=== PATIENT | female | born 1990 | race Caucasian/White ===

== ENCOUNTER → 2016-11-08 | Outpatient (CLI) | payer SELFPAY | LOC: RAD 15:34 | PROVIDERS: ATTEND Nurse Practitioner Women's Health | DX: Z34.81 Encounter for supervision of other normal pregnancy, first trimester (principal) | CPT/HCPCS: 76801 ==

== ENCOUNTER 2017-05-06 16:30 | Outpatient (CLI) | payer MEDICAID ==
--- NOTE | 2017-05-06 17:35 | Non Stress Test Report ---
Non Stress Test Datetime Report Generated by CPN: 05/06/2017 17:34 INDICATION Indication for Study: Ordered by Provider MONITORING Monitor Explained: Monitor Explained; Test Explained; Patient Verbalized Understanding Time on Monitor: 05/06/2017 17:13 Time off Monitor: 05/06/2017 17:33 NST Duration: 20 NST INTERVENTIONS NST Interventions: PO Hydration; Reposition Patient BABY A: [id number] BABY A Movement : Present Contraction Frequency : none FHR Baseline : 135 Accelerations : 15X15 Decelerations : None Variability : Moderate 6-25bpm NST Review: Meets Criteria for Reactive NST NST Review and Verified By : V Monk RN NST Results: Reactive NST REPORT Report Trigger: Send Report
== END 2017-05-06 17:38 | disposition home or self-care (01) ==
LOC: LC 16:30
PROVIDERS: ATTEND Obstetrics & Gynecology
PROC: 4A1HXCZ Monitoring of Products of Conception, Cardiac Rate, External Approach (ICD-10-PCS; principal; 2017-05-06)
DX: Z34.93 Encounter for supervision of normal pregnancy, unspecified, third trimester (principal); Z36 Encounter for antenatal screening of mother; Z3A.37 37 weeks gestation of pregnancy
CPT/HCPCS: 59025

== ENCOUNTER 2017-05-17 19:05 | Inpatient (IN) | payer MEDICAID ==
[2017-05-17] MEDS ORDERED: MISOPROSTOL 0.2 MG TABLET ONE (19:10)
--- NOTE | 2017-05-17 19:10 | ER Document Report ---
ED GI/ - General Chief Complaint: OB Delivery/Emergent Stated Complaint: POSSIBLE LABOR Notes: Patient is a female who presents with contractions every 2 minutes. Called emergently from the [facility] and placed in bed 20 due to labor. TRAVEL OUTSIDE OF THE [place] IN LAST 30 DAYS: No - Related Data Allergies/Adverse Reactions: No Known Allergies Allergy (Verified 05/06/17 18:15) Past Medical History - General Information source: Patient - Social History Smoking Status: Unknown if Ever Smoked Family History: Reviewed & Not Pertinent - Past Medical History Cardiac Medical History: Denies: Hx Coronary Artery Disease, Hx Heart Attack, Hx Hypertension Pulmonary Medical History: Denies: Hx Asthma, Hx Bronchitis, Hx COPD, Hx Pneumonia Neurological Medical History: Denies: Hx Cerebrovascular Accident Endocrine Medical History: Denies: Hx Diabetes Mellitus Type 1, Hx Diabetes Mellitus Type 2 Musculoskeltal Medical History: Denies Hx Arthritis Psychiatric Medical History: Reports: Hx Bipolar Disorder, Hx Depression Past Surgical History: Denies: Hx Pacemaker - Immunizations Hx Diphtheria, Pertussis, Tetanus Vaccination: Yes Review of Systems - Review of Systems -: Yes ROS unobtainable due to patient's medical condition Physical Exam - Notes Notes: PHYSICAL EXAMINATION: GENERAL: Active labor. Uncomfortable. HEAD: Atraumatic, normocephalic. EYES: Pupils equal round and reactive to light, extraocular movements intact, sclera anicteric, conjunctiva are normal. ENT: nares patent, oropharynx clear without exudates. Moist mucous membranes. NECK: Normal range of motion, supple without lymphadenopathy LUNGS: Breath sounds clear to auscultation bilaterally and equal. No wheezes rales or rhonchi. HEART: Regular rate and rhythm without murmurs ABDOMEN: Gravid uterus, normoactive bowel sounds. No guarding, no rebound. No masses appreciated. : Fetus head in canal. No perineal tears. EXTREMITIES: Normal range of motion, no pitting or edema. No cyanosis. NEUROLOGICAL: Cranial nerves grossly intact. Normal speech, normal gait. Normal sensory and motor exams. PSYCH: Normal mood, normal affect. SKIN: Warm, Dry, normal turgor, no rashes or lesions noted. Course - Re-evaluation Re-evalutation: Patient emergently rushed back to bed 20 from [facility]. On my initial exam, baby' s head in canal. Delivered baby at 18:49. Placenta delivered at 18:54. Pitocin given to patient. OB and Peds RN's at bedside to assist delivery. scores 9/9. No active bleeding or tears noted. Pt brought upstairs to L&D floor with baby. Discharge - Discharge Clinical Impression: Emergency delivery of Condition: Stable Disposition: HOME, SELF-CARE
[2017-05-17 20:05] LABS: ABSOLUTE LYMPHOCYTES (AUTO) 1.7 10^3/uL (0.5-4.7); ABSOLUTE MONOCYTES (AUTO) 0.3 10^3/uL (0.1-1.4); ABSOLUTE NEUT (AUTO) 10.2 10^3/uL (1.7-8.2); BASOPHILS % (AUTO) 0.2 % (0-2); EOSINOPHILS % (AUTO) 0.1 % (0-6); HEMOGLOBIN 11.5 g/dL (12.0-15.5); HGB HCT DIFFERENCE 1.5; MEAN CORPUSCULAR HEMOGLOBIN 30.9 pg (27.0-33.4); MEAN CORPUSCULAR HGB CONC 34.9 g/dL (32.0-36.0); MEAN CORPUSCULAR VOLUME 89 fl (80-97); MONOCYTES % (AUTO) 2.6 % (3-13); RED BLOOD COUNT 3.72 10^6/uL (3.72-5.28); RED CELL DISTRIBUTION WIDTH 13.6 % (11.5-14.0); SEGMENTED NEUTROPHILS % (AUTO) 83.1 % (42-78); WHITE BLOOD COUNT 12.3 10^3/uL (4.0-10.5)
[2017-05-17] MEDS ORDERED: DIBUCAINE 1% OINTMENT 28 GM TP PRN (20:08)
[2017-05-17] MEDS ORDERED: NA PHOS,M-B/NA PHOS,DI-BA (ADULT) 133 ML ENEMA PR PRN (20:08)
[2017-05-17] MEDS ORDERED: PSEUDOEPHEDRINE HCL 30 MG TABLET PO PRN (20:08)
[2017-05-17] MEDS ORDERED: OXYTOCIN/NORMAL SALINE 1,000 ML IV PRN (20:08)
[2017-05-17] MEDS ORDERED: ACETAMINOPHEN 650 MG SUPP.RECT PR PRN (20:08)
[2017-05-17] MEDS ORDERED: DIPHENHYDRAMINE HCL 25 MG CAPSULE PO PRN (20:08)
[2017-05-17] MEDS ORDERED: MEASLES,MUMPS&RUBELLA VACC/PF 0.5 ML VIAL SUBCUT PRN (20:08)
[2017-05-17] MEDS ORDERED: BENZOCAINE/MENTHOL AEROSOL SPRAY 56 ML TOP PRN (20:08)
[2017-05-17] MEDS ORDERED: PROMETHAZINE HCL 25 MG SUPP.RECT PR PRN (20:08)
[2017-05-17] MEDS ORDERED: MAGNESIUM HYDROXIDE SUSP 30 ML UDCUP PO PRN (20:08)
[2017-05-17] MEDS ORDERED: GLYCERIN/WITCH HAZEL LEAF 1 EACH MED..PAD TP PRN (20:08)
[2017-05-17] MEDS ORDERED: DIPH/PERTUSS(ACELL)/TETANUS VAC/PF 0.5 ML SYR (>=10YO) IM PRN (20:08)
[2017-05-17] MEDS ORDERED: ZOLPIDEM TARTRATE 5 MG TABLET PO PRN (20:08)
[2017-05-17] MEDS ORDERED: ACETAMINOPHEN WITH CODEINE #3 TABLET PO PRN (20:08)
[2017-05-17] MEDS ORDERED: PROMETHAZINE HCL INJ 25 MG/1 ML VIAL IV PRN (20:08)
[2017-05-17] MEDS ORDERED: PROMETHAZINE HCL 25 MG TABLET PO PRN (20:08)
[2017-05-17] MEDS ORDERED: ACETAMINOPHEN WITH CODEINE #3 TABLET ONE (20:40)
[2017-05-17] MEDS ORDERED: IBUPROFEN 800 MG TABLET ONE (20:40)
--- NOTE | 2017-05-17 21:28 | Delivery Summary ---
Del Sum A-C Datetime Report Generated by CPN: 05/17/2017 21:28 DELIVERY PERSONNEL DELIVERY PERSONNEL: [id number] Delivery Doctor:: Priyanka Labor and Delivery Nurse:: CROW Alfaro Labor and Delivery Nurse:: Gabi Hicks RN Staff Training And Development Manager:: Gabi Hodges RN Neonatal Nurse Practitioner:: MAYURI Smith Nursery Nurse:: Chelsey Guzman RN MATERNAL INFORMATION Delivery Anesthesia: None Medications After Delivery: Pitocin 10 Units IM Estimated Blood Loss (ml): 200 Maternal Complications: Precipitous Labor (<3hrs) LABOR SUMMARY EDC: 05/27/2017 00:00 No. Babies in Womb: 1 Attempted: No Labor Anesthesia: None LABOR INFORMATION Reason for Induction: Not Applicable Onset of Labor: 05/17/2017 17:00 Complete Dilatation: 05/17/2017 18:48 Oxytocin: N/A Group B Beta Strep: neg Steroids Given: None Reason Steroids Not Administered: Not Applicable MEMBRANES Membranes Rupture Method: Spontaneous Rupture of Membranes: 05/17/2017 18:48 Length of Rupture (hr): 0.02 Amniotic Fluid Color: Moderate Meconium Amniotic Fluid Amount: Moderate Amniotic Fluid Odor: Normal STAGES OF LABOR Stage 1 hr: 1 Stage 1 min: 48 Stage 2 hr: 0 Stage 2 min: 1 Stage 3 hr: 0 Stage 3 min: 2 Total Time in Labor hr: 1 Total Time in Labor min: 51 VAGINAL DELIVERY Episiotomy: None Laceration Extension: N/A Laceration Type: None Laceration Repair: Not Applicable Sponge Count Correct: N/A CSECTION DELIVERY Primary Indication: N/A Secondary Indication: N/A CSection Incidence: N/A Labor: N/A Elective: N/A CSection Incision: N/A BABY A INFORMATION Infant Delivery Date/Time: 05/17/2017 18:49 Method of Delivery: Vaginal Born in Route : No : N/A Forceps: N/A Vacuum Extraction: N/A Shoulder Dystocia : No PRESENTATION/POSITION BABY A Presentation: Cephalic Cephalic Presentation: Vertex Vertex Position: Left Occipital Anterior Breech Presentation: N/A PLACENTA INFORMATION BABY A Placenta Delivery Time : 05/17/2017 18:51 Placenta Method of Delivery: Spontaneous Placenta Status: Delivered SCORES BABY A Heart Rate 1 min: >100 bpm Resp Effort 1 min: Good Cry Reflex Irritability 1 min: Cough or Sneeze or Pulls Away Muscle Tone 1 min: Active Motion Color 1 min: Body [place], Extremities Blue Resuscitation Effort 1 min: Tactile Stimulation SCORE 1 MIN: 9 Heart Rate 5 min: >100 bpm Resp Effort 5 min: Good Cry Reflex Irritability 5 min: Cough or Sneeze or Pulls Away Muscle Tone 5 min: Active Motion Color 5 min: Completely [place] Resuscitation Effort 5 min: Tactile Stimulation SCORE 5 MIN: 10 INFORMATION BABY A Gestational Age at Delivery: 38.4 Gestational Status: Early Term- 37- 38.6 Weeks Infant Outcome : Liveborn Infant Condition : Stable Infant Sex: Female IDENTIFICATION BABY A Infant Verification Date/Time: 05/17/2017 19:15 ID Band Number: [id number] Mother's Name Verified: Yes RN Verifying Infant: D Cindy RNC Additional Verifying Personnel: B Ring RN CORD INFORMATION BABY A No. Cord Vessels: 3 Nuchal Cord : N/A Cord Blood Taken: Yes-For Storage (Mom's Blood type +) Infant Suction: Mouth; Nose ASSESSMENT BABY A Infant Complications: None Complications- Other: Delivered in ER Physical Findings at Delivery: Within Normal Limits Physical Findings- Other: See full nursery Assessment Respirations: Appears Normal Skin to Skin: Yes Skin to Skin Time (min): 30 Pre K Lead Teacher/ALS Called : Yes Care By: Cecilia White RNC/Andres Guzman RN Transferred To: Remains with Mother
--- NOTE | 2017-05-17 21:42 | Admission Physical ---
Datetime Report Generated by CPN: 05/17/2017 21:42 CURRENT ADMISSION Chief Complaint: Uterine Contractions; Other Chief Complaint Other: delivered Indication for Induction: Not Applicable Admit Impression- Other: delivered, hep c pos, subutex Admit Plan: Admit to Unit ALLERGIES Medication Allergies: No Medication Allergies: No Known Allergies (05/17/2017) Medication Allergies: No Known Allergies (05/06/2017) Medication Allergies: No Known Allergies (10/25/2014) Latex: No Latex Allergies Food Allergies: denies Environmental Allergies: denies OBSTETRICAL HISTORY EDC: 05/27/2017 00:00 : 3 Para: 2 Term: 2 : 0 SAB: 0 IAB: 0 Ectopic: 0 Livin Cesareans: 0 VBACs: 0 Multiple Births: 0 Gestational Diabetes: Yes Rh Sensitization: No Incompetent Cervix: No BHARAT: No Infertility: No ART Treatment: No Uterine Anomaly: No IUGR: No Hx Previous C/S: No Macrosomia: No Hx Loss/Stillborn: No PIH: No Hx : No Placenta Previa/Abruption: No Depression/PP Depression: Yes PTL/PROM: No Post Hemorrhage: No Current Procedures: Ultrasound; NST Obstetrical History Comments: g1-2005, , male, in labor 3 hours, 6lb 6oz, was iol for placenta aging too fast @ [facility] g2- 2013, , male, in labor 26 hours, 7lb 3oz, was iol for GDM, baby from SIDS at 2 months of age g3-current - delivered in ER on 05/17/17 SEE RECORDS Alcohol: No Marijuana : Yes Marijuana Frequency: Occasional Previous Treatment: None Marijuana Comments: Just in the beginning of the . Cocaine: No Other Illicit Drugs: Yes Illicit Drug Comments: Prior heroin addict, on suboxone until about 3 weeks ago. Cigarettes: Current Everyday Smoker. [id number] MEDICAL HISTORY Diabetes: Yes Diabetes Type: Gestational Diabetes Blood Transfusion: No Pulmonary Disease (Asthma, TB): No Breast Disease: No Hypertension: No Division Superintendent Surgery: No Heart Disease: No Hosp/Surgery: Yes Autoimmune Disorder: No Anesthetic Complications: No Kidney Disease: No Abnormal Pap Smear: Yes Neuro/Epilepsy: No Psychiatric Disorders: Yes Other Medical Diseases: No Hepatitis/Liver Disease: Unknown Significant Family History: No Varicosities/Phlebitis: No Trauma/Violence : No Thyroid Dysfunction: No Medical History Comments: tobacco abuse, bipolar type 1 followed by [facility] on latuda and buspar, on subutex, positive Hep C but RNA quant was negative, history of drug use, poor dentition, GDM, abnormal pap during second INFECTIOUS HISTORY Gonorrhea: No Genital Herpes: No Chlamydia: No Tuberculosis: No Syphilis: No Hepatitis: Yes HIV/AIDS Exposure: No Rash or Viral Illness: No HPV: No Infectious History Comments: Hepatitis C positive PHYSICAL EXAM General: Normal HEENT: Abnormal Neurologic: Normal Thyroid: Normal Heart: Normal Lungs: Normal Breast: Normal Back: Normal Abdomen: Normal Genitourinary Exam: Abnormal Extremities: Normal DTRs: Normal Pelvic Type: Adequate Physical Exam Comments: poor dentition, parous post introitus, no lacerations Vital Signs: Reviewed FETUS A EGA: 38.4 Admit Comment: Pt delivered in the ER PLANS FOR LABOR AND DELIVERY Labor and Delivery: None Pain Management: Epidural Feeding Preference: Formula Benefit of Breast Feed Discussed: Yes Circumcision: N/A INFORMED CONSENT Signature: with User ID: [email or web address]
[2017-05-17 22:02] LABS: APPEARANCE,URINE CLEAR; BILIRUBIN,URINE NEGATIVE (NEGATIVE); GLUCOSE, URINE NEGATIVE (NEGATIVE); KETONES,URINE NEGATIVE (NEGATIVE); LEUKOCYTE ESTERASE,URINE SMALL (NEGATIVE); NITRITE,URINE NEGATIVE (NEGATIVE); PROTEIN,URINE 30 mg/dL (NEGATIVE); URINE SPECIFIC GRAVITY 1.001; UROBILINOGEN,URINE NEGATIVE mg/dL (<2.0)
[2017-05-17 22:22] LABS: URINE BARBITURATES SCREEN NEGATIVE; URINE METHADONE SCREEN NEGATIVE; URINE PHENCYCLIDINE SCREEN NEGATIVE
[2017-05-17 22:26] LABS: URINE OPIATES LOW UNCONFIRMED POSITIVE
[2017-05-17] MEDS: IBUPROFEN 800 MG TABLET PO SCH (22:48)
[2017-05-17] MEDS: FAMOTIDINE 20 MG TABLET PO SCH (22:49)
[2017-05-17] MEDS ORDERED: BUSPIRONE HCL 10 MG TABLET PO ONE (23:00)
[2017-05-17] MEDS ORDERED: LURASIDONE HCL 40 MG TABLET PO ONE (23:15)
[2017-05-18] MEDS: ACETAMINOPHEN WITH CODEINE #3 TABLET PO PRN ×3 (02:36→17:16)
[2017-05-18] MEDS: IBUPROFEN 800 MG TABLET PO SCH ×3 (05:38→21:52)
[2017-05-18 07:31] LABS: HEMATOCRIT 32.5 % (36.0-47.0); HEMOGLOBIN 10.8 g/dL (12.0-15.5); HGB HCT DIFFERENCE -0.1; MEAN CORPUSCULAR HGB CONC 33.4 g/dL (32.0-36.0); MEAN CORPUSCULAR VOLUME 90 fl (80-97); RED BLOOD COUNT 3.61 10^6/uL (3.72-5.28); WHITE BLOOD COUNT 10.6 10^3/uL (4.0-10.5)
[2017-05-18] MEDS: FERROUS SULFATE 325 MG TABLET PO SCH ×2 (09:27→17:16)
[2017-05-18] MEDS: FAMOTIDINE 20 MG TABLET PO SCH ×2 (09:27→21:53)
[2017-05-18] MEDS: PRENATAL VITAMIN W-O CA NO5/FE FUMARATE/FA CAPSULE PO SCH (09:27)
[2017-05-18] MEDS: DOCUSATE SODIUM 100 MG CAPSULE PO SCH ×2 (09:27→17:16)
[2017-05-18] MEDS: SENNOSIDES/DOCUSATE 8.6-50 MG 1 EACH TABLET PO SCH (09:27)
[2017-05-18] MEDS ORDERED: (PENDING PHARMACY ID) (Lurasidone Hcl [Latuda] 20 MG) PO SCH (10:00)
[2017-05-18] MEDS ORDERED: LURASIDONE HCL 40 MG TABLET PO SCH ×2 (10:00→22:00)
--- NOTE | 2017-05-18 13:34 | PDOC PROGRESS REPORT ---
Subjective-OB Subjective: Post Delivery Day: 27 year old. Denies any needs at this time. States off Subutex x 1 month. Physical Exam (OB) Vital Signs: Temp Pulse Resp BP Pulse Ox 97.6 F 73 16 111/69 98 05/18/17 07:57 05/18/17 07:57 05/18/17 07:57 05/18/17 07:57 05/18/17 07:57 Intake & Output 05/17/17 05/18/17 05/19/17 06:59 06:59 06:59 Intake Total 250 360 Balance 250 360 Weight 79.55 kg - Lochia Lochia Amount: Scant < 10 ml Lochia Color: Rubra/Red - Abdomen Description: Tender, Soft, Round Hernia Present: No Bowel Sounds: Normoactive Flatus Presence: Present Stool: No Fundal Description: Firm, Midline Fundal Height: u/u - u/2 Objective-Diagnostic Laboratory: 05/18/17 07:23 05/17/17 05/17/17 05/17/17 20:02 20:02 21:28 WBC 12.3 H RBC 3.72 Hgb 11.5 L Hct 33.0 L MCV 89 MCH 30.9 MCHC 34.9 RDW 13.6 Plt Count 274 Seg Neutrophils % 83.1 H Lymphocytes % 14.0 Monocytes % 2.6 L Eosinophils % 0.1 Basophils % 0.2 Absolute Neutrophils 10.2 H Absolute Lymphocytes 1.7 Absolute Monocytes 0.3 Absolute Eosinophils 0.0 Absolute Basophils 0.0 Urine Color PINK Urine Appearance CLEAR Urine pH 7.0 Ur Specific Bob White 1.001 Urine Protein 30 H Urine Glucose (UA) NEGATIVE Urine Ketones NEGATIVE Urine Blood LARGE H Urine Nitrite NEGATIVE Ur Leukocyte Esterase SMALL H Blood Type A POSITIVE Antibody Screen NEGATIVE 05/18/17 07:23 WBC 10.6 H RBC 3.61 L Hgb 10.8 L Hct 32.5 L MCV 90 MCH 30.0 MCHC 33.4 RDW 14.0 Plt Count 295 Seg Neutrophils % Lymphocytes % Monocytes % Eosinophils % Basophils % Absolute Neutrophils Absolute Lymphocytes Absolute Monocytes Absolute Eosinophils Absolute Basophils Urine Color Urine Appearance Urine pH Ur Specific Bob White Urine Protein Urine Glucose (UA) Urine Ketones Urine Blood Urine Nitrite Ur Leukocyte Esterase Blood Type Antibody Screen
[2017-05-18] MEDS ORDERED: BUSPIRONE HCL 10 MG TABLET PO SCH ×2 (22:00)
[2017-05-19] MEDS: IBUPROFEN 800 MG TABLET PO SCH (05:42)
[2017-05-19] MEDS: ACETAMINOPHEN WITH CODEINE #3 TABLET PO PRN (05:46)
[2017-05-19 08:15] VITALS: BP 102/57
[2017-05-19] MEDS: SENNOSIDES/DOCUSATE 8.6-50 MG 1 EACH TABLET PO SCH (09:25)
[2017-05-19] MEDS: PRENATAL VITAMIN W-O CA NO5/FE FUMARATE/FA CAPSULE PO SCH (09:25)
[2017-05-19] MEDS: DOCUSATE SODIUM 100 MG CAPSULE PO SCH (09:25)
[2017-05-19] MEDS: FAMOTIDINE 20 MG TABLET PO SCH (09:25)
[2017-05-19] MEDS: FERROUS SULFATE 325 MG TABLET PO SCH (09:26)
--- NOTE | 2017-05-19 10:09 | PDOC DISCHARGE SUMMARY ---
General - Admit/Disc Date/PCP Admission Date/Primary Care Provider: 05/17/17 19:05 Discharge Date: 05/19/17 - Discharge Diagnosis (1) Bipolar 1 disorder Is this a current diagnosis for this admission?: Yes (2) Emergency delivery of Is this a current diagnosis for this admission?: Yes (3) Family history of SIDS (sudden infant syndrome) Is this a current diagnosis for this admission?: Yes (4) History of suicide attempt Is this a current diagnosis for this admission?: Yes (5) OPIOID ADDICTION Is this a current diagnosis for this admission?: Yes (6) Is this a current diagnosis for this admission?: Yes (7) Smoker Is this a current diagnosis for this admission?: Yes (8) Gestational diabetes mellitus, class A2 Is this a current diagnosis for this admission?: Yes - Additional Information Discharge Activity: Activity As Tolerated, No Lifting Over 10 Pounds, Pelvic Rest, No tub bath Home Medications: Buspirone HCl [Buspar 10 mg Tablet] 1 tab PO QHS 05/06/17 Lurasidone HCl [Latuda] 20 mg PO DAILY 05/06/17 Pnv No.122/Iron/Folic Acid [ Multi Tablet] 1 tab PO DAILY 05/06/17 History of Present Illness History of Present Illness: EMILY WELLER is a 27 year old female Hospital Course Hospital Course: s/p vaginal delivery doing well. normal course. Physical Exam - Physical Exam Vital Signs: Temp Pulse Resp BP Pulse Ox 98.0 F 74 18 102/57 L 92 05/19/17 08:45 05/19/17 08:45 05/19/17 08:45 05/19/17 07:45 05/19/17 08:45 Intake & Output 05/18/17 05/19/17 05/20/17 06:59 06:59 06:59 Intake Total 250 360 480 Balance 250 360 480 Weight 79.55 kg - Obstetrical Exam Fundal Height: u/u - u/2 Tender: No Result Laboratory Results: 05/18/17 07:23 Plan Discharge Plan: discharge home with f/u at [facility] in 4 wks. Time Spent: Less than 30 Minutes
== END 2017-05-19 13:01 | disposition home or self-care (01) | DRG 774 ==
LOC: LR 19:05 → 2S 21:04
PROVIDERS: ADMIT Obstetrics & Gynecology; ATTEND Obstetrics & Gynecology
PROC: 10E0XZZ Delivery of Products of Conception, External Approach (ICD-10-PCS; principal; 2017-05-17)
DX: O62.3 Precipitate labor (principal); O98.42 Viral hepatitis complicating childbirth; O99.324 Drug use complicating childbirth; F11.20 Opioid dependence, uncomplicated; O77.0 Labor and delivery complicated by meconium in amniotic fluid; O99.334 Smoking (tobacco) complicating childbirth; O24.429 Gestational diabetes mellitus in childbirth, unspecified control; F17.210 Nicotine dependence, cigarettes, uncomplicated; B19.20 Unspecified viral hepatitis C without hepatic coma; Z3A.38 38 weeks gestation of pregnancy; Z37.0 Single live birth
CPT/HCPCS: 36415; 80307; 81005; 85025; 85027; 86592; 86850; 86900; 86901; 99283